=== PATIENT | female | born 2005 | race African-American/Black ===

== ENCOUNTER 2024-02-12 01:05 | Emergency (ER) | payer MEDICAID ==
[~2024-02-12] VITALS: Ht 175.3 cm; Wt 76.9 kg
[2024-02-12] MEDS ORDERED: AMOX-494 MT (03:06)
[2024-02-12 04:00] VITALS: BP 110/73; PULSE 76; RESP 16; TEMP 98.6
[2024-02-14 04:10] LABS: CHLAMYDIA TRACHOMATIS NAA Negative (Negative); NEISSERIA GONORRHOEAE NAA Negative (Negative)
== END 2024-02-12 04:00 | disposition home or self-care (01) ==
LOC: ER 01:05
DX: H66.93 Otitis media, unspecified, bilateral (principal); J02.9 Acute pharyngitis, unspecified
CPT/HCPCS: 81025; 87070; 87430; 87491; 87591; 99283

== ENCOUNTER 2024-02-18 02:33 | Emergency (ER) | payer MEDICAID ==
[~2024-02-18] VITALS: Ht 175.3 cm; Wt 80.0 kg
[~2024-02-18 02:33] MED LIST: AMOX-494 MT
[2024-02-18 02:38] VITALS: O2SAT 98
[2024-02-18 03:00] VITALS: BP 114/76; PULSE 72; RESP 14; TEMP 97.9; O2SAT 100
== END 2024-02-18 04:00 | disposition left against medical advice (07) ==
LOC: ER 02:41
DX: R10.32 Left lower quadrant pain (principal); Z53.21 Procedure and treatment not carried out due to patient leaving prior to being seen by health care provider